=== PATIENT | female | born 1965 | race African-American/Black ===

== ENCOUNTER 2019-01-14 11:54 | Emergency (ER) | payer MEDICARE ==
[~2019-01-14] VITALS: Ht 154.9 cm; Wt 103.0 kg
--- NOTE | 2019-01-14 13:26 | NUR ---
PATIENT YELLING AND CURSING AT STAFF, REQUESTING TO LEAVE AGAINST MEDICAL ADVICE, EDUCATED PATIENT ON THE RISKS OF LEAVING AGAINST MEDICAL ADVICE. SIGNED OUT AGAINST MEDICAL ADVICE AND AMBULATORY OUT IF THE DEPARTMENT. PATIENT REFUSED PHYSICAL EXAM BY DR DUMONT.
--- NOTE | 2019-01-14 13:41 | NUR ---
MD IN ROOM FOR EXAM BEGAN TO AUSCULTATE LUNG SOUNDS PT BECAME AGITATED STATING "YOU DON'T JUST LIFT UP MY SHIRT" MD EXPLAINED TO PT HE NEEDED TO LISTEN TO PT LUNGS AND PT HAD ON TOO MANY LAYERS OF CLOTHING PT ACCUSES MD OF BEING RUDE AND DISRESPECTFUL MD MAINTAINS CALM APPEARANCE THROUGHOUT AND LEAVES THE ROOM TO AVOID FURTHER CONFRONTATION PT CONTINUES TO BE AGITATED WITH MD AND STATES SHE'S LEAVING AMA
--- NOTE | 2019-01-14 13:47 | NUR ---
PT LEFT AMA AFTER CHARGE NURSE AND MD SPOKE WITH HER; PT CURSING AT STAFF AND VERY AGITATED DURING INTERVIEW
--- NOTE | 2019-01-14 14:31 | NUR ---
PT STATES IN TRAIGE ROOM "YOU PEOPLE NEED TO LEARN SOME FUCKING RESPECT" AND WHEN MD TRIES AGAIN TO EXPLAIN WHAT HE WAS TRYING TO DO DURING THE EXAM PT STATES "I DON'T GIVE A DAMN. I'M TALKING NOW. I DON'T WANT TO HEAR IT"
== END 2019-01-14 19:50 | disposition left against medical advice (07) ==
LOC: ER 11:54
DX: R06.09 Other forms of dyspnea (principal); I12.0 Hypertensive chronic kidney disease with stage 5 chronic kidney disease or end stage renal disease; E11.22 Type 2 diabetes mellitus with diabetic chronic kidney disease; N18.6 End stage renal disease; Z99.2 Dependence on renal dialysis
CPT/HCPCS: 36415; 82948; 93005